=== PATIENT | female | born 1975 | race Asian ===

== ENCOUNTER 2023-04-21 08:14 | Day surgery (SDC) | payer OTHER, MEDICAID, SELFPAY ==
[2023-04-14 11:22] VITALS: BMI 25.9
--- NOTE | 2023-04-21 | PATH_ITS ---
[facility] Accession Number: [id number] No. of containers..01 Tissue . 01 Material submitted: . endometrium - ENDOMETRIAL CURETTINGS . 01 Diagnosis: Endometrium, Curettage: Disordered proliferative endometrium with breakdown. Negative for neoplasia. MRV 04/27/2023 1726 Local . 01 Electronically signed: . Ayah Lieberman MD, Pathologist NPI- [id number] . 01 Gross description: . ENDOMETRIAL CURETTINGS: Received in formalin are minute fragments of mucoid and hemorrhagic material measuring 0.7 x 0.7 x 0.4 cm in aggregate. Submitted in toto in 1 cassette. /GEORGE 04/24/2023 2319 Local . 01 Pathologist provided ICD-10: N94.9 . 01 CPT . 465243 Specimen Comment: A courtesy copy of this report has been sent to [phone] Performed at: 01 [facility] [address] [place] [address], [place], [place] [id number] MD Linwood Ngo MD Phone: [phone]
[2023-04-21 08:34] VITALS: BP 160/89; PULSE 67; RESP 16; TEMP 36.7; O2SAT 100; BMI 26.6
[2023-04-21] MEDS: LACTATED RINGERS 1,000 ML 42 ML IV (09:02)
[2023-04-21] MEDS: ACETAMINOPHEN 325 MG TABLET 975 MG PO (09:04)
[2023-04-21] MEDS: SCOPOLAMINE 1 PATCH TOP (09:04)
--- NOTE | 2023-04-21 09:17 | PM.PREOP ---
Pre-operative Note COVID-19 Criteria for continued procedure: Expected advancement of disease process Interval Note History & Physical reviewed/Exam performed by Physician: Yes Changes to H&P: No
--- NOTE | 2023-04-21 10:04 | SUR.OPER ---
Lithotomy on padded OR bed, head on pillow, arms secured on padded arm boards at <90 degrees abduction. Legs secured in padded yellow fins stirrups.
--- NOTE | 2023-04-21 10:21 | SUR.OPER ---
MIRENA IUD FROM MD OFFICE PLACED 04/21/[address] [place] LOT#[id number].
[2023-04-21 10:24] VITALS: BP 118/81; PULSE 58; RESP 12; TEMP 36.3; O2SAT 99
--- NOTE | 2023-04-21 10:26 | PM.OP.1 ---
Operative Date/Time/Diagnoses Date of procedure: 04/21/23 Time of procedure: 10:26 Pre-op diagnosis: Menorrhagia Post-op diagnosis: same Procedure & Clinicians Procedure: Hysteroscopy D&C with placement of Mirena IUD Same procedure as scheduled: Yes Indications: Menorrhagia Surgeon: Omayra Jefferson Click Yes if Unassisted: Yes Anesthesia Type: General Operative Notes Findings: Enlarged fibroid uterus with significant distortion of the endometrial canal from submucous fibroids Closure Type: not applicable Specimen(s): other (Endometrial biopsy) Applied: implant(s) (Mirena IUD) Estimated Blood Loss (mL): 15 Blood products transfused: none Procedure in detail: The patient was brought to the operating room where she underwent general anesthesia. She was placed in low stirrups She was prepped and draped in usual sterile fashion with pulsatile stockings in place and functional, warming in place with blankets. No antibiotics were indicated. Patient emptied her bladder just prior to coming to the operating room. A single-tooth tenaculum was placed on the anterior lip of the cervix and the uterus dilated to #8 Hegar dilator. The hysteroscope was placed into the uterus with a sorbitol solution running and under constant suction. A endometrial curettage was performed. The endometrial curettage was sent to pathology. The uterus was sounded and the Mirena IUD placed to the top of the endometrial canal. Strings were cut to approximately 4 cm. The patient went to recovery room in good condition counts of instruments and sponges were correct. Estimated blood loss less than 15 mL. The sorbitol solution I=O approximately 1000 mL. Complications: none Post-operative Condition: stable Disposition: same day surgery Plan for aftercare: Home when awake and stable
[2023-04-21 10:30] VITALS: BP 140/77; PULSE 59; RESP 14; O2SAT 96
[2023-04-21 10:34] VITALS: BP 144/88; PULSE 69; RESP 12; TEMP 36.2; O2SAT 98
[2023-04-21 10:46] VITALS: BP 163/93; PULSE 60; RESP 14; O2SAT 97
[2023-04-21 11:15] VITALS: BP 187/88; PULSE 59; RESP 15; TEMP 36.6; O2SAT 100
== END 2023-04-21 11:22 | disposition home or self-care (01) ==
PROVIDERS: Referring Provider Specialist; Visit Provider Specialist
PROC: 0UDB8ZZ Extraction of Endometrium, Via Natural or Artificial Opening Endoscopic (ICD-10-PCS; CPT 58558; principal; 2023-04-21 09:45)
PROC: (CPT 58558; 2023-04-21 09:45)
DX: N92.0 Excessive and frequent menstruation with regular cycle (principal); D25.0 Submucous leiomyoma of uterus; Z30.430 Encounter for insertion of intrauterine contraceptive device
CPT/HCPCS: 58558; 58300; 81025; J1100; J1885; J2405; J2704; J3010; J7298

== ENCOUNTER → 2024-03-07 14:45 | Outpatient (ROUT) | payer OTHER, MEDICAID, SELFPAY ==
[2024-03-09 13:40] LABS: Candida species Negative (Negative); Gardnerella vaginalis Positive (Negative); Trichomoas vaginalis Negative (Negative)
== END ==
PROVIDERS: Visit Provider Student in an Organized Health Care Education/Training Program
DX: N89.8 Other specified noninflammatory disorders of vagina (principal)
CPT/HCPCS: 87480; 87510; 87660

== ENCOUNTER → 2024-03-21 11:53 | Outpatient (CLI) | payer OTHER, MEDICAID, SELFPAY ==
--- NOTE | 2024-03-21 11:54 | DI.US.S_ITS ---
PROCEDURE: US PELVIC COMPLETE INDICATIONS: IUD strings not visible, evaluate uterine fibroids TECHNIQUE: Real-time scanning was performed of the pelvic organs, with image documentation. Additional endovaginal scanning was necessary due to incomplete visualization of the adnexal and endometrial structures by transabdominal scanning. COMPARISON: None. FINDINGS: Uterus: Uterus is anteverted and normal in size at 9.1 x 6.4 x 8.7 cm. The myometrium is heterogeneous secondary to two dominant solid masses, one in the left anterior myometrium measuring up to 5.5 cm, the other in the anterior myometrium measuring up to 4.2 cm.. The endometrium is not well seen. There is vague shadowing indicating presence of an IUD. Strings are probably within the lower uterine segment or cervix. Ovaries: Not seen Other: No pathologic free abdominal or pelvic fluid. IMPRESSION: Heterogeneous, fibroid uterus obscuring good visualization of a probable IUD. Uterine fibroids measure 4.2 and 5.5 cm and shadow the endometrium. We strive to produce accurate, complete, and clear reports of imaging services. To assist us in improving patient care, this report was composed using standard report templates and voice recognition software. Therefore, it may contain abnormal punctuation, insertions and/or omissions. Occasional wrong-word or sound-alike substitutions may occur. Though we review the report and make efforts to correct it, we do recommend that the report be read carefully in proper context to recognize any text inaccuracies. Dictated by: Connie Bernabe M.D. on 03/21/2024 at 20:56 Approved by: Connie Bernabe M.D. on 03/21/2024 at 20:59
== END ==
PROVIDERS: Referring Provider Student in an Organized Health Care Education/Training Program; Visit Provider Student in an Organized Health Care Education/Training Program
DX: T83.32XA Displacement of intrauterine contraceptive device, initial encounter (principal); D25.9 Leiomyoma of uterus, unspecified
CPT/HCPCS: 76856

== ENCOUNTER → 2025-03-10 09:27 | Outpatient (CLI) | payer OTHER, SELFPAY ==
--- NOTE | 2025-03-10 09:30 | DI.RAD.S_ITS ---
PROCEDURE: XR HAND LT MIN 3V INDICATIONS: bilateral hand pain TECHNIQUE: 3 views of the hand(s) acquired. COMPARISON: [facility], , HAND 3V RIGHT, 09/24/2014, 23:05. FINDINGS: Bones: No acute fractures or dislocations. Carpal bones are normally aligned. No suspicious bony lesions. There is a subcortical lucency involving the DIP joint of the left 3rd finger. There is overlying soft tissue swelling. Chronic appearing soft tissue calcifications over the dorsal/distal aspect of the 3rd finger middle phalanx. Soft tissues: No suspicious soft tissue calcifications. IMPRESSION: Left hand without acute fracture or malalignment. Subcortical lucency over the distal margin of the 3rd finger middle phalanx which may represent a subchondral degenerative cyst versus osseous erosion. Mild left 3rd middle finger soft tissue swelling. Dictated by: Avery Langston M.D. on 03/10/2025 at 12:33 Approved by: Avery Langston M.D. on 03/10/2025 at 12:37
--- NOTE | 2025-03-10 09:30 | DI.RAD.S_ITS ---
PROCEDURE: XR HAND RT MIN 3V INDICATIONS: bilateral hand pain TECHNIQUE: 3 views of the hand(s) acquired. COMPARISON: [facility], GENARO, HAND 3V RIGHT, 09/24/2014, 23:05. [facility], CR, XR HAND LT MIN 3V, 03/10/2025, 8:45. FINDINGS: Bones: No fractures or dislocations. Carpal bones are normally aligned. No suspicious bony lesions. No suspicious osseous erosions or periosteal reaction. There are degenerative changes predominantly involving the distal interphalangeal joints of the 2nd 4th and 5th fingers as well as the thumb IP joint. Associated soft tissue calcifications at these joints. Soft tissues: No suspicious soft tissue calcifications. IMPRESSION: Right hand without acute fracture or dislocation. Mild polyarticular background degenerative changes of the right hand. No evidence for osseous erosions. Dictated by: Avery Langston M.D. on 03/10/2025 at 12:38 Approved by: Avery Langston M.D. on 03/10/2025 at 12:41
--- NOTE | 2025-03-10 09:30 | DI.RAD.S_ITS ---
PROCEDURE: XR LUMBAR SPINE 3V INDICATIONS: back/joint pain TECHNIQUE: 3 views of the lumbar spine were acquired. COMPARISON: None. FINDINGS: Minimal degenerative changes lower lumbar spine with small osteophytes and minimal facet osseous hypertrophic changes L4-5 and L5-S1. No radiographic evidence of fracture or subluxation. Vertebral body heights, alignment within normal limits. T-shaped metallic intrauterine device noted just to the left of the midline mid pelvis. IMPRESSION: Minimal degenerative changes lower lumbar spine. No radiographic evidence of fracture or subluxation. If symptoms persist or worsen, or there is high clinical suspicion of lumbar abnormality, MRI could be performed. Dictated by: Roel Diaz M.D. on 03/10/2025 at 21:28 Approved by: Roel Diaz M.D. on 03/10/2025 at 21:31
[2025-03-10 10:37] LABS: Add Manual Diff / Slide Review NO; Hematocrit 41.4 % (36-46); Hemoglobin 13.8 g/dL (12.0-16.0); Lymphocytes Absolute Auto 2700 /uL (1100-4500); Mean Corpuscular HGB Conc 33.4 % (30-36); Mean Corpuscular Hemoglobin 29.6 PG (26-34); Mean Corpuscular Volume 88.8 fL (80-100); Platelet Count 184 X10^3/uL (150-400)
[2025-03-10 10:47] LABS: Alanine Aminotransferase 27 IU/L (<35); Albumin 4.4 g/dL (3.5-5.0); Albumin Globulin Ratio 1.6 (1.0-2.8); Alkaline Phosphatase 48 U/L (38-126); Blood Urea Nitrogen 10 mg/dL (7-17); Calcium 9.2 mg/dL (8.4-10.2); Carbon Dioxide 25 mmol/L (22-32); Chloride 104 mmol/L (98-107); Cholesterol 219 mg/dL (140-199); Estimated Glomerular Filt Rate > 60 mL/min (>60); Globulin 2.8 g/dL (1.7-4.1); Glucose 90 mg/dL (70-99); HDL Cholesterol 50 mg/dL (40-60); HEMOLYSIS < 15 (0-50); Potassium 4.0 mmol/L (3.4-5.1); Sodium 136 mmol/L (137-145); Total Protein 7.2 g/dL (6.3-8.2); Triglycerides 192 mg/dL (35-150)
[2025-03-10 11:18] LABS: TSH w/ Reflex to FT4 3.51 uIU/mL (0.47-4.68)
[2025-03-12 18:07] LABS: ANA Screen, IFA Negative (.)
== END ==
PROVIDERS: PCP Family Medicine; Referring Provider Family Medicine; Visit Provider Family Medicine
DX: M79.641 Pain in right hand (principal); M79.642 Pain in left hand; M54.9 Dorsalgia, unspecified; M25.50 Pain in unspecified joint; D25.0 Submucous leiomyoma of uterus; D25.2 Subserosal leiomyoma of uterus; I10 Essential (primary) hypertension; M79.89 Other specified soft tissue disorders; Z97.5 Presence of (intrauterine) contraceptive device
CPT/HCPCS: 36415; 72100; 73130; 80053; 80061; 84443; 85025; 86038; 86200

== ENCOUNTER → 2025-06-18 | Outpatient (CLI) | payer OTHER, SELFPAY ==
--- NOTE | 2025-06-18 16:32 | DI.MG.S_ITS ---
MM screening mammo BI: 06/18/2025. BI-RADS: 1
== END ==
LOC: MAMMO 16:32
PROVIDERS: PCP Family Medicine; Referring Provider Family Medicine; Visit Provider Family Medicine
DX: Z12.31 Encounter for screening mammogram for malignant neoplasm of breast (principal); R92.333 Mammographic heterogeneous density, bilateral breasts
CPT/HCPCS: 77063; 77067

== ENCOUNTER → 2025-07-14 11:24 | Outpatient (CLI) | payer OTHER, SELFPAY | PROVIDERS: PCP Family Medicine; Visit Provider Student in an Organized Health Care Education/Training Program | DX: Z11.3 Encounter for screening for infections with a predominantly sexual mode of transmission (principal); N89.8 Other specified noninflammatory disorders of vagina | CPT/HCPCS: 81514; 87491; 87563; 87591 ==

== ENCOUNTER → 2025-08-01 08:57 | Outpatient (CLI) | payer OTHER, SELFPAY ==
[2025-08-01 09:40] LABS: Blood Urea Nitrogen 15 mg/dL (7-17); Calcium 10.0 mg/dL (8.4-10.2); Carbon Dioxide 27 mmol/L (22-32); Chloride 103 mmol/L (98-107); Estimated Glomerular Filt Rate > 60 mL/min (>60); Glucose 100 mg/dL (70-99); HEMOLYSIS < 15 (0-50); Potassium 3.6 mmol/L (3.4-5.1); Sodium 139 mmol/L (137-145)
== END ==
PROVIDERS: PCP Family Medicine; Referring Provider Family Medicine; Visit Provider Family Medicine
DX: I10 Essential (primary) hypertension (principal); M25.59 Pain in other specified joint; G43.909 Migraine, unspecified, not intractable, without status migrainosus
CPT/HCPCS: 36415; 80048